=== PATIENT | male | born 1990 | race Caucasian/White ===

== ENCOUNTER 2017-06-25 10:48 | Emergency (ER) | payer OTHER ==
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
[2017-06-25] MEDS ORDERED: Aspirin 81 MG Tab.Chew PO ONE (11:38)
--- NOTE | 2017-06-26 13:12 | CR ---
INDICATION: Chest pain. CHEST: A single AP portable upright view of the chest revealed the heart, mediastinum, and bony thorax to be unremarkable. An active infiltrate or effusion was not identified. Overlying EKG leads are noted. IMPRESSION: No active disease. MTDD
--- NOTE | 2017-06-26 13:24 | US ---
INDICATION: Right upper quadrant abdominal pain. RIGHT UPPER QUADRANT/GALLBLADDER ULTRASOUND: Multiple ultrasonic images were obtained and revealed the gallbladder to measure 9.5 x 1.9 x 2.6 cm with no wall thickening, calculi, sludge, pericholecystic fluid, or positive ultrasonic [place] sign. The common bile duct was normal in caliber at 4.3 mm. The right kidney appeared normal, measuring 12.5 x 4.6 x 5.8 cm. The liver was quite echogenic, suggesting diffuse fatty infiltration. Poor penetration also noted with no focal masses seen in the liver. This finding suggests fatty infiltration of the liver. The pancreas, as visualized, appeared normal but was not well seen in the tail area due to intestinal gas. No mass lesions or free fluid collections were identified. IMPRESSION: Fatty infiltration of the liver. MTDD
== END 2017-06-25 14:25 | disposition home or self-care (01) ==
LOC: FB.ED 10:48
DX: R07.9 Chest pain, unspecified (principal); R00.2 Palpitations; K76.0 Fatty (change of) liver, not elsewhere classified; I48.91 Unspecified atrial fibrillation; Z87.891 Personal history of nicotine dependence; Z79.899 Other long term (current) drug therapy; Z88.8 Allergy status to other drugs, medicaments and biological substances
CPT/HCPCS: 36415; 71045; 76705; 80048; 80076; 80305; 82150; 82465; 84443; 84484; 85025; 85379; 85610; 93005; 99285; A9270-GY; G0480

== ENCOUNTER 2017-11-13 03:05 | Emergency (ER) | payer SELFPAY ==
[2017-11-13] MEDS ORDERED: Ondansetron 4 MG Tab.DIS PO ONE (03:25)
[2017-11-13] MEDS ORDERED: Ketorolac 30 MG/ML SDV IM ONE (03:25)
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
== END 2017-11-13 04:38 | disposition home or self-care (01) ==
LOC: FB.ED 03:05
DX: S06.0X0A Concussion without loss of consciousness, initial encounter (principal); I48.91 Unspecified atrial fibrillation; Z88.1 Allergy status to other antibiotic agents; V49.9XXA Car occupant (driver) (passenger) injured in unspecified traffic accident, initial encounter
CPT/HCPCS: 70450; 96372; 99283; A9270; J1885